=== PATIENT | male | born 1945 | race Caucasian/White ===

== ENCOUNTER → 2024-01-25 08:10 | Outpatient (RCR) | payer MEDICARE, SELFPAY | END | disposition home or self-care (01) | LOC: HO.WCC 09-03 08:05 | PROVIDERS: PCP Internal Medicine; Visit Provider Surgery | DX: K62.7 Radiation proctitis (principal); N30.40 Irradiation cystitis without hematuria; R30.0 Dysuria; R35.0 Frequency of micturition; K62.5 Hemorrhage of anus and rectum; R32 Unspecified urinary incontinence; R19.7 Diarrhea, unspecified; D50.0 Iron deficiency anemia secondary to blood loss (chronic); I10 Essential (primary) hypertension; Z79.84 Long term (current) use of oral hypoglycemic drugs; Z79.82 Long term (current) use of aspirin; Z79.899 Other long term (current) drug therapy; Z85.46 Personal history of malignant neoplasm of prostate | CPT/HCPCS: 99211; 99213 ==

== ENCOUNTER 2024-04-20 10:28 | Outpatient (AMB) | payer MEDICARE, SELFPAY ==
--- NOTE | 2024-04-20 11:16 | MHC.OFFVIS ---
Vital Signs 04/20/24 11:18 Height 5 ft 8 in Weight 203 lb 7.787 oz BMI 30.9 BP 112/55 L Blood Pressure Location Lt brachial Position Sitting Pulse 64 Pulse Source Pulse Oximeter Pulse Oximetry (%) 95 Oxygen Delivery Method Room Air Intake Visit Reasons: OA/pt will bring his records Intake Note: Patient presents for follow up on osteoarthritis today. Accompanied by: Spouse Allergies dexamethasone [From Decadron] Adverse Reaction (Mild, Verified 04/20/24 11:20) agressiveness HPI HPI OA/pt will bring his records: Details: He continues to have pain after ambulation in lateral hips that radiates down to his legs with associated numbness. He had MRI done a couple of months ago and was referred to [facility] with plan to have L-spine cortisone injection. However, plan for L-spine cortisone injection is on hold due to planned carotid procedure in April. He has had L-spine cortisone injection in the past in 2019 but does not remember benefit. Parking placard has not benefitted patient. He sometimes needs a wheelchair to ambulate. Trochanteric bursa injection alleviated hip pain for 2 days. Patient brought in notes from [facility] which were reviewed. [facility] Family History (Updated 04/20/24 @ 11:27 by Halina Martinez CMA) Father Heart disease Mother Heart disease Social History (Updated 04/20/24 @ 11:27 by Halina Martinez CMA) Alcohol intake: current Alcohol intake frequency: holidays/special occasions only Alcohol type: other Comment: mixed drink Patient Tobacco Use Status: Former Tobacco user Use of substances other than those prescribed or required for medical reasons: No Review of Systems Const All systems reviewed & are unremarkable except as noted in HPI and below Physical Exam Vital Signs: Last Vital Signs Pulse 64 04/20/24 11:18 BP 112/55 L 04/20/24 11:18 Pulse Ox 95 04/20/24 11:18 Oxygen Delivery Method Room Air 04/20/24 11:18 BMI result Body Mass Index 30.9 Const Other: General: Comfortable Skin: No lesions seen MSK: Trochanteric bursa bilateral tenderness was palpated. Good range of motion of hips. No tenderness of spinous process of lumbar spine. Negative straight leg raising test. No tenderness of shoulders. Good range of motion of shoulders. Assessment & Plan Assessment & Plan (1) Lumbar spondylosis: Comment: He is currently experiencing lateral hip pain with radiculopathy and leg numbness on ambulation. Failed physical therapy and he did not tolerate gabapentin due to side effect of constipation. He had MRI of lumbar spine a couple of months ago but I do not have results. He has been referred [facility] and is planning to have L-spine cortisone injection after carotid procedure. Code(s): M47.816 - Spondylosis without myelopathy or radiculopathy, lumbar region Category: Medical Plan: He will follow-up with physiatry for further management of his lower back symptoms MRI L-spine requested from [facility] for our records. Return to clinic as needed (2) Trochanteric bursitis: Comment: Unchanged after last cortisone injection 11/2023. He has also had a prior injection right side 01/17/2022. We discussed conservative management. He has exercises from PT in the past but is noncompliant. Code(s): M70.60 - Trochanteric bursitis, unspecified hip Category: Medical Qualifiers: Laterality: bilateral Qualified Code(s): M70.61 - Trochanteric bursitis, right hip; M70.62 - Trochanteric bursitis, left hip Plan: Encouraged patient to be compliant with home exercise program for hip strengthening. He recently [facility] Return to clinic as needed (3) Tendinopathy of rotator cuff: Comment: Bilateral. He has left calcific tendinitis. He has been experiencing some discomfort recently. He completed physical therapy in the past in his exercises at home. Code(s): M67.919 - Unspecified disorder of synovium and tendon, unspecified shoulder Category: Medical Qualifiers: Laterality: unspecified laterality Qualified Code(s): M67.919 - Unspecified disorder of synovium and tendon, unspecified shoulder Plan: I encouraged him to restart home exercise program for shoulder strengthening Return to clinic as needed Coding Level of Care Code Est Pt Level 4 (14700) Complex EM visit Add On G2211 Diagnoses Lumbar spondylosis M47.816 Trochanteric bursitis of both hips M70.61; M70.62 Laterality: bilateral Tendinopathy of rotator cuff, unspecified laterality M67.919 Laterality: unspecified laterality
[2024-04-20 11:18] VITALS: BP 112/55; PULSE 64; O2SAT 95; BMI 30.9
== END 2024-04-20 12:07 | disposition home or self-care (01) ==
PROVIDERS: PCP Internal Medicine; Visit Provider Internal Medicine Rheumatology
DX: M47.816 Spondylosis without myelopathy or radiculopathy, lumbar region (principal); M70.61 Trochanteric bursitis, right hip; M70.62 Trochanteric bursitis, left hip; M67.919 Unspecified disorder of synovium and tendon, unspecified shoulder
CPT/HCPCS: 99214; G2211

== ENCOUNTER → 2024-04-20 10:28 | Outpatient (BNVA) | payer MEDICARE, SELFPAY | PROVIDERS: PCP Internal Medicine; Visit Provider Internal Medicine Rheumatology | DX: M47.816 Spondylosis without myelopathy or radiculopathy, lumbar region (principal); M70.61 Trochanteric bursitis, right hip; M70.62 Trochanteric bursitis, left hip; M67.919 Unspecified disorder of synovium and tendon, unspecified shoulder | CPT/HCPCS: 99212 ==